=== PATIENT | female | born 1980 | race Caucasian/White ===

== ENCOUNTER 2021-06-04 15:26 | Emergency (ER) | payer MEDICAID, SELFPAY ==
[~2021-06-04] VITALS: Ht 167.6 cm; Wt 94.3 kg
--- NOTE | 2021-06-04 15:39 | NUR ---
Pt to remain in the ER tent for evaluation.
[2021-06-04 15:40] VITALS: BP_SYST 157
--- NOTE | 2021-06-04 15:40 | NUR ---
Pt AAO and ambulatory reporting worsening cough, congestion, and throat discomfort. Pt reports chest tightness with audible crackles at home. Pt is Covid positive X 12 days. Pt does not currently appear to be in any distress and V/S are stable.
--- NOTE | 2021-06-04 16:00 | NUR ---
Dr Cano evaluating patient at bedside
[2021-06-04] MEDS ORDERED: ZINC50TA69 PO (17:37)
[2021-06-04] MEDS ORDERED: IVER3TAB PO (17:37)
[2021-06-04] MEDS ORDERED: DEC4 PO (17:37)
[2021-06-04] MEDS ORDERED: VITD2000 PO (17:37)
[2021-06-04 17:44] VITALS: BP_SYST 152
--- NOTE | 2021-06-04 17:46 | NUR ---
Patient given written and verbal discharge instructions and verbalizes understanding. ER MD discussed with patient the results and treatment provided. Patient in stable condition. ID arm band removed. Rx of decadron, stromectol, Vitamin D3 given. Patient educated on pain management and to follow up with PMD. Pain Scale 2/10. Opportunity for questions provided and answered. Medication side effect fact sheet provided.
== END 2021-06-04 17:46 | disposition home or self-care (01) ==
LOC: SED 15:26
DX: U07.1 COVID-19 (principal); Z79.899 Other long term (current) drug therapy
CPT/HCPCS: 36415; 71045; 99284